=== PATIENT | male | born 1970 | race African-American/Black ===

== ENCOUNTER 2020-03-17 20:55 | Emergency (ER) | payer OTHER ==
[~2020-03-17] VITALS: Ht 180.3 cm; Wt 90.7 kg
[2020-03-17 21:03] VITALS: BP 140/90
--- NOTE | 2020-03-17 21:06 | NUR ---
TO LOBBY A/W BED AMBULATORY
[2020-03-17 21:30] VITALS: BP 140/90
--- NOTE | 2020-03-17 21:40 | NUR ---
SEEN AND EXAMINED BY SILVIA WITH ORDERS AND CARRIED OUT
[2020-03-17] MEDS ORDERED: HYDROcodone/APAP 5/325 MG 1 TAB TAB PO ONE (21:45)
[2020-03-17] MEDS ORDERED: ONDANSETRON 4 MG ODT PO ONE (21:45)
--- NOTE | 2020-03-17 22:10 | NUR ---
MEDICATED PER ERMDS ORDER, TOLERATED WELL.
[2020-03-17 22:27] LABS: BASOPHILS # (AUTO) 0.1 K/uL (0.00-0.22); BASOPHILS % (AUTO) 0.6 % (0.0-2.0); EOSINOPHILS % (AUTO) 0.3 % (0.0-4.0); HEMATOCRIT 43.2 % (36-52); LYMPHOCYTES # (AUTO) 2.4 K/uL (2.0-11.5); LYMPHOCYTES % (AUTO) 16.2 % (20.5-51.1); MEAN CORPUSCULAR HEMOGLOBIN 30 pg (27-31); MEAN CORPUSCULAR HGB CONC 35 g/dL (33-37); MEAN CORPUSCULAR VOLUME 86.3 fL (80-94); MONOCYTES # (AUTO) 0.9 K/uL (0.8-1.0); MONOCYTES % (AUTO) 6.4 % (1.7-9.3); NEUTROPHILS # (AUTO) 11.3 K/uL (1.8-7.7); NEUTROPHILS % (AUTO) 76.5 % (42.2-75.2); PLATELET COUNT (AUTO) 253 K/uL (140-450); RED BLOOD CELL COUNT(AUTO) 5.01 MIL/uL (4.20-6.10); RED CELL DISTRIBUTION WIDTH 13.4 % (11.6-13.7); WHITE BLOOD COUNT (AUTO) 14.7 K/uL (4.8-10.8)
[2020-03-17 22:47] LABS: ALBUMIN 4.4 g/dL (3.4-5.0); CREATININE 1.2 mg/dL (0.6-1.3); MAGNESIUM 2.3 mg/dL (1.8-2.4); POTASSIUM 3.8 mmol/L (3.5-5.1); TOTAL BILIRUBIN 0.8 mg/dL (0.0-1.0)
[2020-03-17 22:55] LABS: ANION GAP 10.7 (8-16); CARBON DIOXIDE 27.1 mmol/L (21-32)
--- NOTE | 2020-03-17 23:58 | NUR ---
AT TIME OF DISCHARGE PT STATES, WHILE TALKING ON THE PHONE, THAT NORCO 5/325 GIVEN WAS ONLY EFFECTIVE FOR AN HOUR AND THAT HE DOES NOT WANT RX ZOFRAN. SILVIA LEON MADE AWARE.
== END 2020-03-18 00:16 | disposition home or self-care (01) ==
LOC: MED 20:55
DX: G89.29 Other chronic pain (principal); M54.9 Dorsalgia, unspecified; M54.2 Cervicalgia; R11.2 Nausea with vomiting, unspecified
CPT/HCPCS: 36415; 80053; 83735; 85025; 99283; Q0162